=== PATIENT | female | born 1975 | race Hispanic/Latino ===

== ENCOUNTER 2016-05-02 09:18 | Emergency (ER) | payer BC ==
[2016-05-02 09:23] VITALS: TEMP 97.8; O2SAT 100
[2016-05-02 09:24] VITALS: BMI 41.1
--- NOTE | 2016-05-02 10:01 | ED PDOC ---
Lower Extremity Pain/Injury Time Seen by Provider: 05/02/16 09:46 Chief Complaint (Nursing): Lower Extremity Problem/Injury Chief Complaint (Provider): left ankle injury History Per: Patient History/Exam Limitations: no limitations Onset/Duration Of Symptoms: Hrs (<1), Sudden Onset Current Symptoms Are (Timing): Still Present Severity: Moderate Additional Complaint(s): 40yo female states was coming [place] train stairs [place] just [employer] when twisted L ankle/foot awkwardly, states she then lowered herself to ground, did not injury head neck, back or upper extremity. Denies hip or knee pain. Took a motrin [employer]. - Ankle/Foot Description Of Injury: Twisted Currently Unable To: Bear Weight Alleviating Factor(s): Elevation Feet: 1 - pain Past Medical History Reviewed: Historical Data, Nursing Documentation, Vital Signs Vital Signs: Last Vital Signs Temp 97.8 F 05/02/16 09:22 Pulse 63 05/02/16 09:22 Resp 18 05/02/16 09:22 BP 133/88 05/02/16 09:22 Pulse Ox 100 05/02/16 09:22 - Medical History PMH: Asthma - Surgical History Surgical History: Cholecystectomy, Tonsillectomy (adenoidectomy) - Social History Current smoker - smoking cessation education provided: No - Allergies Allergies/Adverse Reactions: Allergies Allergy/AdvReac Type Severity Reaction Status Date / Time No Known Allergies Allergy Verified 05/02/16 09:49 Review of Systems ROS Statement: Except As Marked, All Systems Reviewed And Found Negative Constitutional: Negative for: Fever, Chills Cardiovascular: Negative for: Chest Pain, Palpitations Respiratory: Negative for: Cough, Shortness of Breath Gastrointestinal: Negative for: Nausea, Vomiting Genitourinary Female: Negative for: Dysuria, Frequency Musculoskeletal: Positive for: Foot Pain, Other (L ankle). Negative for: Neck Pain, Shoulder Pain, Arm Pain, Leg Pain Skin: Negative for: Rash, Lesions Neurological: Negative for: Weakness, Numbness Physical Exam - Reviewed Nursing Documentation Reviewed: Yes Vital Signs Reviewed: Yes - Physical Exam Appears: Positive for: Well, Non-toxic Head Exam: Positive for: ATRAUMATIC Skin: Positive for: Normal Color, Warm Eye Exam: Negative for: Periorbital swelling Respiratory: Negative for: Respiratory Distress Extremity: Positive for: Tenderness (L ankle laterall and prox foot), Swelling ( L ankle and prox foot) - ECG O2 Sat by Pulse Oximetry: 100 Medical Decision Making Medical Decision Making: Pain medication ordered. XRays ordered r/o fracture.
--- NOTE | 2016-05-02 11:09 | RAD ---
PROCEDURE: Left foot radiographs Left ankle radiographs HISTORY: trauma COMPARISON: None available. FINDINGS: BONES: No acute displaced fracture. JOINTS: No dislocation. SOFT TISSUES: Mild soft tissue swelling, more prominent at the lateral ankle. No evidence of radiopaque foreign body. OTHER FINDINGS: None. IMPRESSION: Mild soft tissue swelling, more prominent about the lateral ankle. No acute displaced fracture, dislocation, or significant joint effusion identified. If symptoms persist, or if there is continued clinical concern, x-ray follow-up in 7-10 days should be considered.
[2016-05-02 13:22] VITALS: BP 128/78; PULSE 81; RESP 20
== END 2016-05-02 13:22 | disposition home or self-care (01) ==
LOC: H.ER 09:18
DX: S99.912A Unspecified injury of left ankle, initial encounter (principal); W19.XXXA Unspecified fall, initial encounter; Y92.89 Other specified places as the place of occurrence of the external cause
CPT/HCPCS: 29515; 73610; 73630; 81025; 96372; 99285; J1885